=== PATIENT | female | born 1985 | race Caucasian/White ===

== ENCOUNTER → 2022-12-19 | Outpatient (REF) | payer OTHER ==
[2022-12-19 17:53] LABS: BACTERIA, URINE AUTO NEGATIVE (NEGATIVE); MUCUS, URINE SMALL (NEGATIVE); RBC, URINE AUTO 0 /HPF (0-3); SQUAMOUS EPITHELIAL CELL UR AU 0 /HPF (0-6); WBC, URINE AUTO 0 /HPF (0-3)
== END ==
LOC: M SMT 16:57
PROVIDERS: ATTEND Specialist
DX: R31.29 Other microscopic hematuria (principal); N32.81 Overactive bladder; N83.202 Unspecified ovarian cyst, left side; Z87.442 Personal history of urinary calculi
CPT/HCPCS: 81015; 87086; G0463

== ENCOUNTER 2023-10-30 09:39 | Day surgery (SDC) | payer OTHER ==
[~2023-10-30] VITALS: Ht 160 cm; Wt 78.9 kg
[~2023-10-30 09:39] MED LIST: FAMO1TAB11 PO; IRON65TA2 PO; RIZA5TAB2 PO; SYNT125T PO; TRAN650T PO; VITA-158 PO
[2023-10-30 10:05] LABS: HEMATOCRIT 35.2 % (36.0-47.0); HEMOGLOBIN 11.2 g/dl (12.0-15.5); MEAN CORPUSCULAR HEMOGLOBIN 28.7 pg (27.0-33.0); MEAN CORPUSCULAR HGB CONC 31.8 g/dl (32.0-36.5); MEAN CORPUSCULAR VOLUME 90.3 fl (80.0-96.0); PLATELET COUNT, AUTOMATED 341 10^3/uL (150-450); WHITE BLOOD COUNT 5.5 10^3/uL (4.0-10.0)
[2023-10-30] MEDS ORDERED: LR 1,000 ML IV SCH ×2 (10:30→15:55)
[2023-10-30] MEDS ORDERED: LIDOCAINE 1% SDV 5ML VIAL SC PRN (10:30)
[2023-10-30] MEDS ORDERED: MIDAZOLAM INJ 2MG/2ML VIAL As Ordered ONE (12:20)
[2023-10-30] MEDS ORDERED: fentaNYL 100 MCG/2 ML INJECTION As Ordered ONE ×2 (12:20→15:04)
[2023-10-30] MEDS ORDERED: LIDOCAINE 2% 100MG/5ML SDV (FOR ANES.) As Ordered ONE ×2 (12:20→12:21)
[2023-10-30] MEDS ORDERED: KETOROLAC 60MG 2ML VIAL As Ordered ONE (12:21)
[2023-10-30] MEDS ORDERED: propofoL 200 MG/20 ML VIAL As Ordered ONE (12:21)
[2023-10-30] MEDS ORDERED: ONDANSETRON 4MG 2ML VIAL As Ordered ONE (12:21)
[2023-10-30] MEDS ORDERED: LIDOCAINE 1% SDV 30ML VIAL As Ordered ONE (13:50)
[2023-10-30] MEDS ORDERED: SILVER NITRATE APPLICATOR (1 = QTY 10) As Ordered ONE (13:50)
[2023-10-30] MEDS ORDERED: METHYLENE BLUE 0.5% (5MG/ML) 10 ML AMP (PROVAYBLUE) As Ordered ONE (13:51)
[2023-10-30] MEDS ORDERED: SCOPOLAMINE 1MG TRANSDERMAL PATCH TOP ONE (14:00)
[2023-10-30] MEDS ORDERED: SCOPOLAMINE 1MG TRANSDERMAL PATCH As Ordered ONE (14:03)
[2023-10-30] MEDS ORDERED: fentaNYL 100 MCG/2 ML INJECTION IV PRN (15:55)
[2023-10-30] MEDS ORDERED: HYDROMORPHONE HCL 0.5 MG/ 0.5 ML SYRINGE IV PRN (15:55)
[2023-10-30] MEDS ORDERED: oxyCODONE 5MG TAB PO PRN (15:55)
[2023-10-30] MEDS ORDERED: MORPHINE 2 MG/ML 1ML VIAL IV PRN (15:55)
[2023-10-30] MEDS ORDERED: ONDANSETRON 4MG 2ML VIAL IV PRN (15:55)
[2023-10-30 17:54] VITALS: BP 138/82; TEMP 97.9; O2SAT 99
== END 2023-10-30 18:50 | disposition home or self-care (01) ==
LOC: M SDC 09:39
PROVIDERS: ATTEND Obstetrics & Gynecology
DX: N80.351 Endometriosis of the right pelvic sidewall, unspecified depth (principal); N80.329 Endometriosis of the posterior cul-de-sac, unspecified depth; N80.A0 Endometriosis of bladder, unspecified depth; N80.103 Endometriosis of bilateral ovaries, unspecified depth; N80.3C1 Endometriosis of the right uterosacral ligament, unspecified depth; N83.11 Corpus luteum cyst of right ovary; N88.2 Stricture and stenosis of cervix uteri; N94.6 Dysmenorrhea, unspecified; N93.9 Abnormal uterine and vaginal bleeding, unspecified; E03.9 Hypothyroidism, unspecified; Z79.890 Hormone replacement therapy; D64.9 Anemia, unspecified; Z79.899 Other long term (current) drug therapy; Z87.891 Personal history of nicotine dependence; Z88.8 Allergy status to other drugs, medicaments and biological substances; Z88.2 Allergy status to sulfonamides
CPT/HCPCS: 36415; 58558; 58662; 81025; 85027; 86850; 86900; 86901; 88305; J0665; J1100; J1885; J2250; J2405; J3010; Q9968

== ENCOUNTER 2025-08-09 09:55 | Day surgery (SDC) | payer OTHER ==
[~2025-08-09] VITALS: Ht 160 cm; Wt 83.7 kg
[~2025-08-09 09:55] MED LIST changes: +KETOROLAC 30 MG/ML 1 ML VIAL As Ordered ONE; +ONDANSETRON 4MG/2ML VIAL As Ordered ONE; +PRENMIS3 PO; +dexAMETHasone 4 MG/ML 1 ML VIAL As Ordered ONE
[2025-08-09] MEDS ORDERED: LR 1,000 ML IV SCH (10:40)
[2025-08-09] MEDS ORDERED: MIDAZOLAM INJ 2 MG/2 ML VIAL As Ordered ONE (10:47)
[2025-08-09] MEDS: SCOPOLAMINE 1MG TRANSDERMAL PATCH TOP SCH (11:12)
[2025-08-09] MEDS ORDERED: LIDOCAINE 2% 100 MG/5 ML SDV (FOR ANES.) As Ordered ONE (11:40)
[2025-08-09] MEDS ORDERED: ACETAMINOPHEN 1000MG/100ML IV BAG As Ordered ONE (11:54)
[2025-08-09] MEDS: SILVER NITRATE APPLICATOR (1 = QTY 10) As Ordered ONE (12:00)
[2025-08-09] MEDS: LIDOCAINE 1% SDV 30 ML VIAL As Ordered ONE (12:05)
[2025-08-09] MEDS ORDERED: HYDROMORPHONE HCL 0.5 MG/0.5 ML SYRINGE IV PRN (12:30)
[2025-08-09] MEDS: HYDROMORPHONE HCL 0.5 MG/0.5 ML SYRINGE IV PRN (12:51)
[2025-08-09] MEDS: ONDANSETRON 4MG/2ML VIAL IV PRN (13:17)
[2025-08-09 15:15] VITALS: BP 121/57; TEMP 97.6; O2SAT 96
== END 2025-08-09 15:46 | disposition home or self-care (01) ==
LOC: M SDC 09:55
PROVIDERS: ATTEND Obstetrics & Gynecology
DX: N84.0 Polyp of corpus uteri (principal); N93.9 Abnormal uterine and vaginal bleeding, unspecified; D64.9 Anemia, unspecified; E03.9 Hypothyroidism, unspecified; Z79.890 Hormone replacement therapy; Z79.899 Other long term (current) drug therapy; Z88.2 Allergy status to sulfonamides; Z88.8 Allergy status to other drugs, medicaments and biological substances; Z90.49 Acquired absence of other specified parts of digestive tract
CPT/HCPCS: 36415; 58558; 81025; 85014; 85018; 88305; J0131; J1100; J1171; J1885; J2250; J2405; J3010; S0191